=== PATIENT | male | born 1950 | race Caucasian/White ===

== ENCOUNTER 2016-05-13 12:41 | Emergency (ER) | payer MEDICARE ==
[~2016-05-13] VITALS: Ht 190.5 cm; Wt 104.5 kg
[2016-05-13 12:45] VITALS: BP 155/85; PULSE 69; RESP 16; O2SAT 99
--- NOTE | 2016-05-13 15:00 | DRSVH ---
PROCEDURE: X-RAY CHEST, TWO VIEWS ([id number]) INDICATIONS: CHEST PAIN TECHNIQUE: 2 views of the chest were acquired. COMPARISON: None. FINDINGS: It is noted that the right apex is not completely included within the [id number]. Surgical changes and devices: None. Lungs and pleura: No pleural effusions or pneumothorax. Lungs are clear. Mediastinum: Mediastinal contours are normal. Heart size is normal. Bones and chest wall: No suspicious bony abnormalities. Soft tissues appear unremarkable. IMPRESSION: No acute pulmonary process. Dictated by: Janki Deluna M.D. on 05/13/2016 at 14:58 Approved by: Janki Deluna M.D. on 05/13/2016 at 14:58
[2016-05-13 15:17] LABS: BASOPHILS % (AUTO) 0.9 % (0-3); EOSINOPHILS % (AUTO) 24.3 % (0-5); MONOCYTES % (AUTO) 6.3 % (4-12); Mean Corpuscular Hemoglobin 29.8 pg (27.0-35.0); Mean Corpuscular Volume 88.7 fL (81-100); NEUTROPHILS % (AUTO) 45.4 % (40-74); Platelet Count 308 bil/L (150-400)
--- NOTE | 2016-05-13 15:26 | ED.REPORT ---
HPI-Chest Pain 40 and Over Date of Service May 13, 2016 ED Provider: Yusef Wahl MD 66 year old male with a history of HTN presents to the ER accompanied by his due to an episode of chest pain 5 days ago. Last week, patient was on a 5 day course of antibiotics to treat a sinus infection. Three days after starting the antibiotics he experienced a 2 minute episode of tongue and right lower facial numbness. denies any visible differences in his appearances at that time. The following day he experienced a transient 20 minute episode of substernal "squeezing" chest pain rated as 5/10 in severity with coughing in the middle of the night while laying in bed. He was seen at his primary care provider earlier today where he had an ECG done that revealed a prior CO and he was subsequently referred to the ER. Patient denies diaphoresis, shortness of breath, nausea, radiation of pain, and any significant cardiac history. He took 325mg ASA earlier today. Nursing Notes Stated Complaint: CHEST PAIN Chief Complaint: Chest Pain Nursing Notes Reviewed: Yes Allergies: Coded Allergies: No Known Allergies (Unverified , 05/13/16) General Time Seen by MD: 15:25 Chief Complaint Chest pain Hx Obtained From: Patient, Spouse Arrived By: Walk-in Sudden in Onset?: Yes Onset Occurred: 5 days ago Location: : Substernal Quality: Painful Severity: Current: No pain currently Severity: Maximum: Pain level 5 out of 10 Associated with: Reports: Cough, productive, Denies: Diaphoresis, Nausea, Shortness of Breath Context Related History: Denies: Congestive heart failure, Diabetes mellitus, Hypertension, Myocardial infarction Recent Healthcare: Recent doctor visit Similar Sx Previous: No Risk Factors )( CAD Risk Stratification HypertensionNo Amphetamine, No Cocaine, No Diabetes mellitus, No Family history , No Hyperlipidemia, No Known CAD, No Smoking Risk factors reviewed HEART Score HEART for MACE: Mod index of susp (1), Age 65 or over (2), 1-2 CAD risk factors (1), < or = to NL troponin (0) HEART for MACE Score: 4-7 (mod risk 12%-16.6%) Past Medical History Past Medical History Denies history of CO Reports: Hypertension, Denies: COPD, Congestive heart failure, Coronary artery disease, Diabetes mellitus Denies: Atrial fibrillation Family History Mother and siblings all have atrial fibrillation Denies family history of CAD, CO Smoking History Never Smoker Social History Alcohol Use: Denies alcohol use Other Social History: Good social support, Ambulatory Status Independent Review of Systems Constitutional: Denies: Chills, Fever Respiratory: Reports: Prod cough, clear, Denies: Shortness of breath Cardiovascular: Reports: Chest pain GI: Denies: Nausea, Vomiting Musculoskeletal: Denies: Back pain, Extremity pain, Neck pain Skin: Denies Diaphoresis Neurologic: Reports: Numbness Complete sys rev & neg: except as marked. Physical Exam Initial Vital Signs Vital Signs (First) Date Time Temp Pulse Resp B/P Pulse Ox O2 Delivery O2 Flow Rate FiO2 05/13/16 12:45 36.8 69 16 155/85 99 Room Air Initial VS: Reviewed Head / Eyes: Atraumatic, Normocephalic Neck: Supple, Non-tender, Full range of motion Extremities: Vascular intact, Neuro intact, No swelling, No tenderness Skin: Warm, Dry, No cyanosis Neurologic: Alert, Oriented, Nonfocal General/Constitutional: Awake, Alert, No acute distress, Well developed, Well nourished Respiratory / Chest: Breath sounds NL, Breath sounds = bilat, No respiratory distress, No rales, No rhonchi, No wheezing Cardiovascular: Heart rate NL, Regular rhythm, Heart sounds NL, No murmurs, Peripheral circulation NL, Pulses = bilaterally, No gross BP differential Abdomen: Soft, Non-tender, No guarding, No rebound, No distention Interpretation & Diagnostics Lab Results Interpretation Result Diagram: 05/13/16 1505 05/13/16 1505 Test 05/13/16 15:05 White Blood Count 8.7th/mm3 (3.8-10.1) Red Blood Count 4.94mil/mm3 (4.40-5.80) Hemoglobin 14.7g/dL (13.8-17.2) Hematocrit 43.8% (41.0-50.0) Mean Corpuscular Volume 88.7fL (81-100) Mean Corpuscular Hemoglobin 29.8pg (27.0-35.0) Mean Corpuscular Hemoglobin Concent 33.6% (32.0-37.0) Red Cell Distribution Width 12.5% (12.3-15.4) Platelet Count 308bil/L (150-400) Neutrophils (%) (Auto) 45.4% (40-74) Lymphocytes (%) (Auto) 22.8% (14-46) Monocytes (%) (Auto) 6.3% (4-12) Eosinophils (%) (Auto) 24.3% (0-5) Basophils (%) (Auto) 0.9% (0-3) Prothrombin Time 10.8sec (8.1-12.5) Prothromb Time International Ratio 1.01ratio Activated Partial Thromboplast Time 30.0sec (22.8-33.0) Sodium Level 139mEq/L (134-144) Potassium Level 4.0mEq/L (3.5-5.2) Chloride Level 101mEq/L (97-108) Carbon Dioxide Level 28mmol/L (18-29) Blood Urea Nitrogen 15mg/dL (8-27) Creatinine 0.89mg/dL (0.76-1.27) Estimat Glomerular Filtration Rate 90mL/min (>59) Glucose Level 99mg/dL (60-99) Calcium Level 9.1mg/dL (8.5-10.1) Magnesium Level 2.1mg/dL (1.6-2.6) Total Bilirubin 0.5mg/dL (0.0-1.2) Aspartate Amino Transf (AST/SGOT) 20U/L (0-50) Alanine Aminotransferase (ALT/SGPT) 19U/L (0-44) Alkaline Phosphatase 57U/L (25-160) Troponin T < 0.010ug/L (0.0-0.011) Total Protein 7.2g/dL (6.4-8.4) Albumin 3.9g/dL (3.4-5.0) Hold Raymundo Top Tube Received (Received) ECG Interpretation ECG Interpretation: Sinus rhythm, rate 57 Old inferior infarct Unchanged from prior ECG Time: 14:41 Interpreted by: ED physician X-Ray Chest Interpretation Chest Xray Interpretation: IMPRESSION: No acute pulmonary process. Dictated by: Janki Deluna M.D. on 05/13/2016 at 14:58 Approved by: Janki Deluna M.D. on 05/13/2016 at 14:58 View: AP & lat Interpretation / Wet Read by: Interpret - Radiologist Re-Eval/Medical Decision Source of Hx: Old records Time of Eval: 15:42 Re-Evaluation/Progress Note: Discussed physical examination findings and plan to discharge with urgent cardiology follow-up pending arrangement. Patient is amenable to the plan. Time of Eval: 16:01 Re-Evaluation/Progress Note: Updated patient on the plan of care. Discussed need for immediate stress test. Patient understands and agrees to the plan. Time of Eval: 17:13 Re-Evaluation/Progress Note: Discussed lab, radiology, and stress test results and plan to discharge. Patient is amenable to the plan. Return precautions given. All other questions addressed. Consultation #1: Referral / Consult Name: Montana Martinez PA-C Call Returned at: 17:07 Note: Normal Nick Protocol Treadmill. Consultation #2: Referral / Consult Name: Lydia Rogel MD Consulted With: Cardiology Requested Call at: 17:08 Call Returned at: 17:13 Note: Dr. Rogel states that outpatient follow-up this point is appropriate. Counseled Regarding: Diagnosis, Lab results, Need for follow-up, When/why to return to ED Discharge & Departure Primary Impression: Chest pain Chest pain type: unspecified Qualified Code: R07.9 - Chest pain, unspecified Disposition: Home Discharge Condition All VS Reviewed: Yes Condition: Stable Patient Instructions: Chest Pain (ED) Additional Instructions: No dangerous cause for your chest pain is discovered. Your treadmill test and other laboratory testing including x-ray and EKG were all entirely reassuring with the exception of the probably chronic abnormality on your EKG that we discussed. This may require further evaluation but does not warrant hospitalization at this time. Call tomorrow for a follow-up appointment in the coming days to discuss further evaluation as indicated. Return to the ER if you develop worsening chest pain, radiation of pain into your neck/jaw or shoulders/arms, shortness of breath, nausea, sweating, or any other worsening or concerning symptoms. Referrals: Srinivasa Vasquez MD (PCP) Calvin Attestation Portions of this note were transcribed by Felton Maldonado. I, Dr. Wahl, personally performed the history, physical exam and medical decision-making; I reviewed and confirmed the accuracy of the information in the transcribed note. Signed by: Calvin Minor, 05/13/2016 and 17:15 copies to: Srinivasa Vasquez MD, Kirk H MD May 13, 2016 15:26 FELTON MALDONADO May 13, 2016 15:45
[2016-05-13 15:34] LABS: INR 1.01 ratio
[2016-05-13 15:39] LABS: TROPONIN T < 0.010 ug/L (0.0-0.011)
[2016-05-13 15:49] LABS: Magnesium 2.1 mg/dL (1.6-2.6)
[2016-05-13 17:18] VITALS: BP 118/67; PULSE 68; RESP 12; O2SAT 98
[2016-05-13 17:26] VITALS: BP 118/67; PULSE 68; RESP 12; O2SAT 98
== END 2016-05-13 17:26 | disposition home or self-care (01) ==
LOC: SED 12:41
DX: R07.9 Chest pain, unspecified (principal); I10 Essential (primary) hypertension; I25.2 Old myocardial infarction; Z79.82 Long term (current) use of aspirin